=== PATIENT | male | born 1960 | race Caucasian/White ===

== ENCOUNTER 2023-01-28 05:34 | Day surgery (SDC) | payer BC ==
[2023-01-24 13:37] VITALS: BMI 36.1
[2023-01-28 10:03] VITALS: TEMP 97.5
[2023-01-28 10:39] VITALS: BP 133/93; PULSE 54; RESP 20
== END 2023-01-28 10:45 | disposition home or self-care (01) ==
LOC: JASU-ENDO 05:34
PROVIDERS: ATTEND Internal Medicine Gastroenterology
PROC: 0DBL8ZX Excision of Transverse Colon, Via Natural or Artificial Opening Endoscopic, Diagnostic (ICD-10-PCS; 2023-01-28)
PROC: 0DBN8ZX Excision of Sigmoid Colon, Via Natural or Artificial Opening Endoscopic, Diagnostic (ICD-10-PCS; 2023-01-28)
PROC: 0DBM8ZX Excision of Descending Colon, Via Natural or Artificial Opening Endoscopic, Diagnostic (ICD-10-PCS; 2023-01-28)
PROC: 3E0H8GC Introduction of Other Therapeutic Substance into Lower GI, Via Natural or Artificial Opening Endoscopic (ICD-10-PCS; 2023-01-28)
PROC: 0DBK8ZX Excision of Ascending Colon, Via Natural or Artificial Opening Endoscopic, Diagnostic (ICD-10-PCS; principal; 2023-01-28 09:00)
DX: Z12.11 Encounter for screening for malignant neoplasm of colon (principal); D12.2 Benign neoplasm of ascending colon; D12.3 Benign neoplasm of transverse colon; D12.4 Benign neoplasm of descending colon; D12.5 Benign neoplasm of sigmoid colon; K64.8 Other hemorrhoids; Z86.010 Personal history of colon polyps; Z83.71 Family history of colonic polyps
CPT/HCPCS: 88305-TC

== ENCOUNTER 2024-01-31 04:48 | Day surgery (SDC) | payer BC ==
[2024-01-29 08:33] VITALS: BMI 35.9
[2024-01-31 08:14] VITALS: TEMP 98
[2024-01-31 08:32] VITALS: RESP 20
[2024-01-31 08:55] VITALS: BP 127/63; PULSE 55
== END 2024-01-31 09:04 | disposition home or self-care (01) ==
LOC: JASU-ENDO 04:48
PROVIDERS: ATTEND Internal Medicine Gastroenterology
PROC: 0DBL8ZX Excision of Transverse Colon, Via Natural or Artificial Opening Endoscopic, Diagnostic (ICD-10-PCS; principal; 2024-01-31 08:00)
DX: Z12.11 Encounter for screening for malignant neoplasm of colon (principal); D12.3 Benign neoplasm of transverse colon; K64.8 Other hemorrhoids
CPT/HCPCS: 88305-TC